=== PATIENT | female | born 1935 | race Caucasian/White ===

== ENCOUNTER 2025-02-07 14:21 | Emergency (ER) | payer OTHER ==
[~2025-02-07] VITALS: Wt 68.0 kg
[2025-02-07] MEDS ORDERED: MAGNESIUM SULFATE 100 ML IV ONE (14:25)
[2025-02-07] MEDS ORDERED: FEROSUL325 MG PO (14:34)
[2025-02-07] MEDS ORDERED: LYRICA75 M1 PO (14:36)
[2025-02-07] MEDS ORDERED: MIDODRINE HCL5 M1 PO (14:36)
[2025-02-07] MEDS ORDERED: METFORMIN HYDR500 MG PO (14:36)
[2025-02-07] MEDS ORDERED: NATURE'S BLEND F1 MG PO (14:37)
[2025-02-07] MEDS ORDERED: ESOMEPRAZOLE MA40 M1 PO (14:37)
[2025-02-07] MEDS ORDERED: LOSARTAN POTASS25 M1 PO (14:37)
[2025-02-07] MEDS ORDERED: JANUVIA100 MG PO (14:38)
[2025-02-07] MEDS ORDERED: OXYCODONE HCL10 M1 PO (14:38)
[2025-02-07] MEDS ORDERED: Ondansetron4 MG PO (14:44)
[2025-02-07] MEDS ORDERED: LEVOTHYROXINE100 MC1 PO (14:44)
[2025-02-07] MEDS ORDERED: ROSUVASTATIN CAL5 MG PO (14:44)
== END 2025-02-07 18:29 ==
LOC: ED 14:21
DX: Z88.2 Allergy status to sulfonamides (principal); Z91.048 Other nonmedicinal substance allergy status; Z88.8 Allergy status to other drugs, medicaments and biological substances; Z79.899 Other long term (current) drug therapy; Z79.84 Long term (current) use of oral hypoglycemic drugs; E83.42 Hypomagnesemia